=== PATIENT | female | born 1990 | race Caucasian/White ===

== ENCOUNTER → 2021-05-12 14:36 | Outpatient (CLI) | payer OTHER, SELFPAY ==
--- NOTE | ~2021-05-12 | CT_ITS ---
EXAMINATION: CT abdomen w con DATE: 05/12/2021 15:07 INDICATION: Left upper quadrant pain TECHNIQUE: Computed tomography (CT) of the abdomen was performed with 100 cc Omnipaque 350 intravenou s contrast. The dose-length product was 562.44 mGy-cm. Automated exposure control and iterative recon struction technique were employed. COMPARISON: CT dated 08/22/2028. FINDINGS: Lung bases are unremarkable. Heart size normal. No significant pleural or pericardial effus ion. No significant vascular abnormality. No lymphadenopathy. The liver, spleen, pancreas, adrenal glands and kidneys are unremarkable. There are accessory splenul es. Gallbladder is present. Nonobstructive bowel gas pattern. No free air or free fluid. No acute oss eous abnormality. IMPRESSION: 1. No acute abdominal abnormality. Reviewed, dictated and finalized at location A.
== END ==
PROVIDERS: PCP Family Medicine; Visit Provider Family Medicine
DX: R10.9 Unspecified abdominal pain (principal)
CPT/HCPCS: 74160; Q9967

== ENCOUNTER 2024-01-26 09:18 | Outpatient (CLI) | payer OTHER, SELFPAY ==
[2024-01-26 10:08] LABS: Hematocrit 37.7 % (37.0-47.0); Hemoglobin 12.1 g/dL (12.0-15.0); Mean Corpuscular HGB Conc 32.1 g/dl (32-36); Mean Corpuscular Hemoglobin 28.1 pg (26-34); Mean Corpuscular Volume 87.5 fl (80-100); Mean Platelet Volume 10.7 fl (7.4-10.4); Platelet Count Result 318 k/mm3 (150-375); Red Blood Count 4.31 M/mm3 (4.2-5.4); Red Cell Distribution Width 12.3 % (11.5-14.5); White Blood Count 10.3 K/mm3 (4.5-10.0)
[2024-01-26 16:23] LABS: Rapid Plasma Reagin Non-Reactive (NonReactive)
== END 2024-01-26 09:19 | disposition home or self-care (01) ==
LOC: ANHLAB 09:20
PROVIDERS: PCP Family Medicine; Visit Provider Obstetrics & Gynecology
DX: Z01.818 Encounter for other preprocedural examination (principal); O82 Encounter for cesarean delivery without indication; Z3A.00 Weeks of gestation of pregnancy not specified
CPT/HCPCS: 36415; 85027; 86592; 86850; 86900; 86901

== ENCOUNTER 2024-01-27 05:44 | Inpatient (IN) | payer OTHER, SELFPAY ==
[2024-01-27] VITALS (45 sets, daily range): BP systolic 116–164; BP diastolic 62–127; PULSE 54–117; RESP 16–18; TEMP 36.1–36.8; O2SAT 96–100; BMI 38.1
[2024-01-27] MEDS: ACETAMINOPHEN 500 MG TABLET 1000 MG PO (06:24)
--- NOTE | 2024-01-27 06:40 | PM.IMHP ---
H&P: HPI History of Present Illness Date/Time: 01/27/24 06:40 Chief Complaint: Helen bauer Narrative: 33 y/o at 39 2/7 weeks with prior . She was scheduled for repeat this morning. She had a gush of clear fluid and RomPlus is positive here. GBS neg. Review of Systems Review of Systems: All systems reviewed & are unremarkable except as noted in HPI and below PMFSH Surgical History Surgical History (Updated 01/27/24 @ 06:42 by Gomez Harris MD) History of delivery History of knee surgery Family History Family History Other Patient denies significant medical history Social History Social History Substance use: never Spiritual care concerns: No Meds Home Medications and Allergies Home Medications Medication Instructions Recorded Confirmed Type prenat.vits,martha,dry-wkvl-mlybg 1 tablet PO DAILY 05/08/21 10/27/21 History cholecalciferol (vitamin D3) 25 25 mcg PO DAILY 01/15/24 01/15/24 History mcg (1,000 unit) tablet Allergies Allergy/AdvReac Type Severity Reaction Status Date / Time No Known Allergies Allergy Verified 10/27/21 13:39 Exam Const: Orientation/consciousness: patient oriented x3 Other: Well-developed, well-nourished female in no acute distress. Neck: Thyroid: thyroid normal Lymphatic: no lymphadenopathy noted (in neck, axilla or inguinal nodes) Resp: Effort & Inspection: normal respiratory effort Auscultation: clear to auscultation bilaterally Cardio: Rate: regular rate Rhythm: regular rhythm Heart sounds: S1 normal heart sound present and S2 normal heart sound present GI: Other: ABD: Soft, nontender, nondistended, gravid. NST reactive. TOCO: irregular contractions. No guarding or rebound tenderness. No hepatosplenomegaly. : General: Yes no CVA tenderness Other: Cervix closed, thick. Back/Spine/Pelvis: Back: no CVA tenderness Skin: General skin exam: normal color and no rashes or lesions noted Neuro: General: patient oriented x3 Extrem: Other: Extremities: nontender with no edema Psych: Mental Status: mental status grossly normal Affect: normal affect Assessment and Plan Assessment and plan (1) Term : Code(s): Z34.90 - Encounter for supervision of normal , unspecified, unspecified trimester Status: Acute Assessment and Plan: A: IUP at 39 2/7 weeks with SROM, prior Desires repeat. P: Plan repeat . She understands risks of surgery to include risks of anesthesia, risks of pain, infection, bleeding, blood products, thromboembolic phenomena and damage to adjacent structures such as bowel, bladder, ureters, blood vessels and nerves. She understands all these risks and elects to proceed with surgery. (2) SROM (spontaneous rupture of membranes): Status: Acute (3) History of delivery: Code(s): Z98.891 - History of uterine scar from previous surgery Status: Acute
--- NOTE | 2024-01-27 06:43 | WPDHPUPDATE1 ---
History and Physical Update Update Date/Time: 01/27/24 06:43 History and Physical has been reviewed, including an updated exam of the patient. There are NO changes in the patient's condition. Risks, benefits, and alternatives have been discussed and questions answered. Patient agrees to proceed with procedure.
[2024-01-27] MEDS: LACTATED RINGERS 1,000 ML 125 ML IV CONT (06:49)
[2024-01-27] MEDS: ONDANSETRON INJ 4 MG/2 ML VIAL IV PUSH (06:53)
[2024-01-27] MEDS: FAMOTIDINE 20 MG/2 ML VIAL IV PUSH (06:54)
[2024-01-27] MEDS: AZITHROMYCIN 500 MG/NS 250 ML 500 MG/250 ML BAG 250 MG IVPB (06:55)
--- NOTE | 2024-01-27 07:00 | P.PNAN_ITS ---
Anes - Initial Pre Proc Eval Procedure: Operation Date: 01/27/24 11:00 Proposed Procedures p Repeat Section - Gomez Harris MD Date/Time: 01/27/24 07:00 Surgeon: Gomez Harris MD Pre Op Diagnosis: IOl Patient Data Age: 33 Gender: F Height: 1.7 m Weight: 110.5 kg Allergies Allergy/AdvReac Type Severity Reaction Status Date / Time No Known Allergies Allergy Verified 10/27/21 13:39 Home Medications Medication Instructions Recorded Confirmed Type prenat.vits,martha,[id number] 1 tablet PO DAILY 05/08/21 10/27/21 History cholecalciferol (vitamin D3) 25 25 mcg PO DAILY 01/15/24 01/15/24 History mcg (1,000 unit) tablet Patient hx anesthesia problems: none Family hx anesthesia problems: none Results Review: All pre-operative results and documents have been reviewed as part of the pre- operative evaluation. [facility] Surgical History Surgical History History of delivery History of knee surgery Family History Family History Other Patient denies significant medical history Social History Social History Substance use: never Spiritual care concerns: No Anes - Eval Final PreProcedure Day of Procedure 01/27/24 07:00 Patient weight: obese Heart: regular rate and rhythm Lungs: clear to auscultation Airway: Mallampati scale class 1 Neurological: alert and oriented Last oral intake: >/= 8 hours ASA classification: II Emergent: no Anesthetic plan: proceed Anesthesia type and monitoring: regional spinal and standard monitoring Results Review: All pre-operative results and documents have been reviewed as part of the pre- operative evaluation. Informed Consent: The patient's anesthetic plan and its attendant risks and benefits were discussed with the patient/family/POA. Questions were solicited and answers provided to the satisfaction of the patient/family/POA.
--- NOTE | 2024-01-27 07:12 | LDADM ---
This patient, Tianna Romero, was admitted to Labor/Delivery/Recovery 120 on 01/27/24 at 05:44. Plans for labor, pain management and were discussed with patient. Patient/family oriented to hospital policies and general routines including ID bracelet, bed and alarms, visiting hours, pain management, procedures, bathroom and other care routines, personal items, smoking policy, room service/diet and guest tray routines, security routines, and visiting hours. Patient/Family are encouraged to report perceived risks to care and to ask questions if they do not understand what they are told or what they should do. See OBIX for further documentation.
[2024-01-27] MEDS: ceFAZolin 2 GM/D5W 50 ML 2 GM/50 ML BAG IVPB (07:34)
[2024-01-27 08:14] LABS: HIV 1/2 Ab P24 Ag Result Negative (Negative)
[2024-01-27 08:21] LABS: Alanine Aminotransferase 16 U/L (6-35); Albumin Level 3.4 g/dL (3.5-5.1); Alkaline Phosphatase 112 U/L (38-126); Anion Gap 6 mmol/L (4-12); Aspartate Amino Transferase 24 U/L (14-36); Bilirubin,Total 0.3 mg/dL (0.2-1.3); Blood Urea Nitrogen 10 mg/dL (7-17); Carbon Dioxide 21 mmol/L (22-30); Chloride 108 mmol/L (98-107); Estimated CRCL calculation 168 ml/min; Estimated Glomerular Filt Rate > 60; Glucose 94 mg/dL (65-110); Potassium 3.9 mmol/L (3.4-5.0); Sodium 135 mmol/L (137-145); Uric Acid 4.7 mg/dL (2.5-7.5)
--- NOTE | 2024-01-27 08:42 | W.PM.OBCSD ---
OB - Delivery Note Procedure Delivery date: 01/27/24 Pre-op diagnosis: Breech Presentation and Previous Delivery (IUP at 39 2/7 weeks, prior , SROM, breech presentation) Post-op Diagnosis: Same Induction method: None Delivery monitor: External FHT and External Uterine Procedure Performed: Repeat Surgeon: Gomez Harris MD Anesthesia type: Spinal Description of Procedure/Findings: Findings: Normal-appearing uterus, tubes and ovaries. Techniques: The patient was taken to the operating room where she was prepared and draped in the usual sterile fashion in dorsal supine position with a leftward tilt. She received cefazolin preoperatively. Spinal anesthesia was found to be adequate. A Pfannenstiel skin incision was made along the previous scar line and was carried through to the underlying layer of the fascia. The fascia was incised in the midline and the incision was extended laterally. The fascia was dissected free of the underlying rectus muscles. The rectus muscles were in the midline. The peritoneum was identified, tented up and entered sharply. The peritoneal incision was extended superiorly and inferiorly with good visualization of the bladder. The bladder blade was placed. The vesicouterine peritoneum was identified, tented up and entered sharply. The incision was extended laterally and the bladder flap was developed. The bladder blade was replaced. The uterus was then incised sharply in a transverse fashion along the lower uterine segment. The incision was extended laterally. The 's breech was delivered to the level of the scapulae. The arms were swept across the chest and delivered. The head was gently flexed and easily delivered. A loose nuchal cord was reduced. The nose and mouth were bulb suctioned. After a delay, the cord was clamped and cut. The was handed off the field. Cord blood was collected. The placenta was removed manually and was passed off the field. The uterus was exteriorized and cleared of all clots and debris. The uterine incision was reapproximated using 0 Monocryl in a running, locked fashion. A second, imbricating layer was run. Excellent hemostasis resulted as did excellent reapproximation of the normal anatomy. The uterus was returned the abdomen. The pelvis was irrigated copiously with warmed normal saline. Rigorous hemostasis was assured. The fascial layer was reapproximated using 0 Vicryl in a running fashion. The skin was closed with a running, subcuticular stitch of 4 0 Vicryl. Dermaflex was applied externally. Sponge, lap, needle and instrument counts were correct. The patient was taken to the recovery room in stable condition. The went to the nursery in stable condition. I was present and scrubbed the entire procedure. Specimen: Yes (cord blood) Estimated Blood Loss: 90 Drains: Yes (crisostomo) Packing: No Pathology: Yes (cord blood) Complications: None Condition: Stable Disposition: PACU Baby Date of : 01/27/24 Time of : 08:07 Weeks of gestation at delivery: 39 gender: Female Weight (pounds): 6 presentation: rhina breech Placenta delivery description: Manual Removal and Normal Configuration Cord Vessel Description: 3 Vessels, Nuchal Cord and Delayed Cord Clamping score one minute: 9 score five minutes: 9
--- NOTE | 2024-01-27 08:45 | SUR.PHASEI ---
900 ml remains of 1000 ml LR with 40 units Pitocin
--- NOTE | 2024-01-27 08:50 | PM.OBDSVD ---
DS: Admitting Diagnosis Discharge Date 01/28/24 Admitting Diagnosis IUP at 39 2/7 weeks SROM Breech presentation Prior , desires repeat DS: Discharge Diagnosis Discharge Diagnosis (1) delivery delivered: Code(s): O82 - Encounter for delivery without indication Status: Acute OB - DS: Summary OB Procedures : None OB Procedures Intrapartum: OB Procedures: : None Peripartum Data Procedures: Procedures Operation Date: 01/27/24 07:30 Actual Procedure Side Surgeon p Repeat Section Not Applicable Gomez Harris MD Time Spent with Patient Time attestation: Total time spent providing and/or coordinating discharge services: DS: Data Data Completed and Pending Labs on day of discharge: Labs from last 24 hours 01/27/24 06:42 Sodium 135 L Potassium 3.9 Chloride 108 H Carbon Dioxide 21 L Anion Gap 6 BUN 10 Creatinine 0.50 L Estim Creat Clear Calc 168 Estimated GFR > 60 Glucose 94 Uric Acid 4.7 Calcium 9.0 Total Bilirubin 0.3 AST 24 ALT 16 Alkaline Phosphatase 112 Total Protein 7.0 Albumin 3.4 L HIV 1&2 Ab/P24 Ag 4thGn Negative Discharge Plan Discharge Attending physician on discharge: Gomez Harris Discharging Clinician: Gomez Harris Patient Disposition: Home, Self-Care Activity: may shower, may drive after 2 weeks and pelvic rest Diet: regular Wound Care Instructions: incision open to air Discharge Instructions: Call or return if temperature above 100.4? F, increased abdominal pain, increased vaginal bleeding or any new problems. Stand Alone Forms: General Discharge Information Follow-up/Referrals: Gomez Harris MD [Physician] - 4 Weeks Discharge Medications: New ibuprofen 600 mg tablet 600 mg PO Q6H PRN (Reason: cramps) Qty: 30 0RF ferrous sulfate 325 mg (65 mg iron) tablet 325 mg PO DAILY Qty: 30 0RF hydrocodone-acetaminophen 5-325 mg tablet 1 - 2 tablet PO Q6H PRN (Reason: pain) Qty: 30 0RF Continued prenat.vits,martha,fos-pbrb-tuwqv Tablet 1 tablet PO DAILY cholecalciferol (vitamin D3) 25 mcg (1,000 unit) Tablet 25 mcg PO DAILY docusate sodium [Colace] 100 mg Capsule 100 mg PO DAILY Date of admission: 01/27/24 05:44 Primary Care Provider: Vonnie Marion Admitting Provider: Gomez Harris Attending physician on admission: Gomez Harris Condition: Stable
--- NOTE | 2024-01-27 09:18 | SUR.PHASEI ---
Severe range BP of 164/127 was obtained with pt's arm bent while . Had pt straighten right arm and repeat BP 126/74.
[2024-01-27] MEDS: diphenhydrAMINE HCl INJ 50 MG/ML VIAL 25 MG IV PUSH (10:03)
[2024-01-27] MEDS: fentaNYL CITRATE INJ (*CRX) 100 MCG/2 ML VIAL 25 MCG IV PUSH (10:34)
--- NOTE | 2024-01-27 11:18 | PC.NURSE ---
Patient transferred to post room #277 per stretcher from labor and delivery. Support person present. Oriented to unit, room, information board, rooming in, admission packet and security measures. Patient verbalizes understanding.
[2024-01-27] MEDS: ACETAMINOPHEN 325 MG TABLET 650 MG PO ×2 (13:23→19:54)
[2024-01-27] MEDS: KETOROLAC 15 MG/ML VIAL (*BKC) IV PUSH ×2 (13:23→19:55)
[2024-01-27] MEDS: SIMETHICONE 80 MG TAB.CHEW PO ×2 (13:23→18:04)
--- NOTE | 2024-01-27 14:49 | PC.NURSE ---
Patient did receive her 500ml bag with pitocin after delivery. The medication was discontinued before it was able to be scanned.
[2024-01-27] MEDS: DEXTROSE 5%/0.45% SOD CHL 1,000 ML 125 ML IV CONT (18:03)
[2024-01-27] MEDS: DOCUSATE SODIUM 100 MG CAPSULE PO (18:04)
[2024-01-27] MEDS: LIDOCAINE 5% PATCH 1 PATCH TRANSDERM (21:30)
[2024-01-28] MEDS: ACETAMINOPHEN 325 MG TABLET 650 MG PO ×4 (02:49→22:11)
[2024-01-28] MEDS: KETOROLAC 15 MG/ML VIAL (*BKC) IV PUSH ×2 (02:49→08:39)
[2024-01-28 05:12] VITALS: BP 112/71; PULSE 73; RESP 18; TEMP 36.5; O2SAT 97
[2024-01-28 05:39] LABS: Basophils Percent Auto 0.2 % (0.2-1.2); Eosinophils Absolute Auto 0.1 K/mm3 (0-0.3); Eosinophils Percent Auto 0.8 % (0-4.4); Hematocrit 30.6 % (37.0-47.0); Hemoglobin 9.6 g/dL (12.0-15.0); Immature Granulocyte Absolute 0.03 K/mm3 (0.00-0.031); Immature Granulocyte Percent A 0.4 % (0-0.5); Lymphocytes Absolute Auto 1.58 K/mm3 (0.9-3.2); Lymphocytes Percent Auto 19.1 % (18.3-44.2); Mean Corpuscular HGB Conc 31.4 g/dl (32-36); Mean Corpuscular Hemoglobin 27.7 pg (26-34); Mean Corpuscular Volume 88.2 fl (80-100); Mean Platelet Volume 10.7 fl (7.4-10.4); Monocytes Absolute Auto 0.5 K/mm3 (0.1-0.6); Neutrophils Absolute Auto 6.1 K/mm3 (1.3-6.7); Neutrophils Percent Auto 73.5 % (45.5-73.1); Platelet Count Result 246 k/mm3 (150-375); Red Blood Count 3.47 M/mm3 (4.2-5.4); Red Cell Distribution Width 12.6 % (11.5-14.5); White Blood Count 8.3 K/mm3 (4.5-10.0)
--- NOTE | 2024-01-28 07:50 | WPDANLDPN2 ---
Anes-Prog Note L&D Date/Time: 01/28/24 07:50 Comfortable throughout: section Neuraxial method: spinal Epidural/Spinal procedure site: clean & non-tender Neuro status: Neuro function grossly intact. Cardiovascular status: normal Respiratory status: normal Airway patency: baseline Mental status: baseline Post-Op hydration status: normal Vital Signs: Last Vital Signs Temp 36.5 C 01/28/24 05:12 Pulse 73 01/28/24 05:12 Resp 18 01/28/24 05:12 BP 112/71 01/28/24 05:12 Pulse Ox 97 01/28/24 05:12 O2 Del Method Room Air 01/27/24 10:45 Pain score (VAS): 2/10 I/O: Intake & Output 01/27/24 01/27/24 01/28/24 15:59 23:59 07:59 Intake Total 240 1022.9 550 Output Total 220 1650 1550 Balance 20 -627.1 -1000 Post-procedural complaints: pruritis mild, no treatment Patient feedback: Patient satisfied with anesthetic care.
--- NOTE | 2024-01-28 07:51 | WPDANLDNPN2 ---
Anes-Prog Note L&D-Neuraxial Date/Time: 01/28/24 07:51 Neuraxial medications: intrathecal PF morphine Opiod-related complaints: pruritis mild, no treatment Patient feedback: Patient satisfied with post-operative pain management.
[2024-01-28 08:15] VITALS: BP 128/86; PULSE 81; RESP 16; TEMP 36.8; O2SAT 98
[2024-01-28] MEDS: DOCUSATE SODIUM 100 MG CAPSULE PO ×2 (08:38→15:58)
[2024-01-28] MEDS: POLYSACCHARIDE IRON COMPLEX 150 MG CAPSULE PO ×2 (08:38→15:59)
[2024-01-28] MEDS: SIMETHICONE 80 MG TAB.CHEW PO ×2 (08:39→15:58)
[2024-01-28] MEDS: MULTIVIT/MIN/PREN/FOL AC/IRON TABLET 1 TAB PO (08:39)
--- NOTE | 2024-01-28 08:50 | PM.OBPNVD ---
OB - PN: Subj Subjective Date/time seen: 01/28/24 08:50 Narrative: Pain OK. Tolerating diet. Would like to go home. OB - PN: Obj Data Labs 01/28/24 05:19 01/27/24 06:42 Labs: Laboratory Results - last 24 hr 01/28/24 05:19 WBC 8.3 RBC 3.47 L Hgb 9.6 L Hct 30.6 L MCV 88.2 MCH 27.7 MCHC 31.4 L RDW 12.6 Plt Count 246 MPV 10.7 H Immature Gran % (Auto) 0.4 Neut % (Auto) 73.5 H Lymph % (Auto) 19.1 [place] % (Auto) 6.0 Eos % (Auto) 0.8 Baso % (Auto) 0.2 Lymph # (Auto) 1.58 [place] # (Auto) 0.5 Eos # (Auto) 0.1 Baso # (Auto) 0.0 Abs Immat Gran (auto) 0.03 Absolute Neuts (auto) 6.1 Absolute Nucleated RBC 0.000 Nucleated RBC % 0.0 OB - PN A/P Plan Comments: A: POD#2, doing well. P: Home to f/u 4 weeks. Exam Narrative: AVSS ABD soft, nontender, fundus firm. Incision c/d/i. EXT nontender
[2024-01-28] MEDS: IBUPROFEN 600 MG TABLET PO ×2 (15:59→22:12)
--- NOTE | 2024-01-28 18:59 | PC.NURSE ---
Gum at bedside
[2024-01-28 20:00] VITALS: BP 138/92; PULSE 85; RESP 18; TEMP 36.8; O2SAT 100
[2024-01-28] MEDS: LIDOCAINE 5% PATCH 1 PATCH TRANSDERM (22:12)
[2024-01-29] MEDS: ACETAMINOPHEN 325 MG TABLET 650 MG PO (05:38)
[2024-01-29] MEDS: IBUPROFEN 600 MG TABLET PO (05:38)
[2024-01-29 07:45] VITALS: BP 134/85; PULSE 66; RESP 16; TEMP 36.9; O2SAT 99
--- NOTE | 2024-01-29 07:45 | PC.NURSE ---
Breast pump provided due to maternal request. Instructions given on cleaning, care, usage, that there should be no pain, pumping schedule for milk production, collection, and storage of human milk. Patient was assessed for correct placement, flange size, to pump for comfort and nipple stretching/stimulation for adequate milk production every 3 hours (8 times in 24 hours) 1-2 times at night.
[2024-01-29] MEDS: SIMETHICONE 80 MG TAB.CHEW PO (08:26)
[2024-01-29] MEDS: MULTIVIT/MIN/PREN/FOL AC/IRON TABLET 1 TAB PO (08:26)
[2024-01-29] MEDS: POLYSACCHARIDE IRON COMPLEX 150 MG CAPSULE PO (08:26)
[2024-01-29] MEDS: DOCUSATE SODIUM 100 MG CAPSULE PO (08:26)
--- NOTE | 2024-01-29 10:12 | PM.OBPNVD ---
OB - PN: Subj Subjective Date/time seen: 01/29/24 10:12 Narrative: Pain OK. Tolerating diet. Would like to go home. OB - PN: Obj Data Labs 01/28/24 05:19 01/27/24 06:42 OB - PN A/P Plan day: 2 Comments: A: POD#2, doing well. P: Home to f/u 4 weeks. Exam Narrative: AVSS ABD soft, nontender, fundus firm. Incision c/d/i. EXT nontender
[2024-01-31 10:16] VITALS: BP 144/89; PULSE 88; RESP 18; TEMP 36.9; O2SAT 100
== END 2024-01-29 11:37 | disposition home or self-care (01) | DRG 788 ==
LOC: ANHLDR 05:50 → ANHOB2 11:47
PROVIDERS: Admitting Provider Obstetrics & Gynecology; PCP Family Medicine; Visit Provider Obstetrics & Gynecology
PROC: 10D00Z1 Extraction of Products of Conception, Low, Open Approach (ICD-10-PCS; CPT 59514; principal; 2024-01-27 11:00)
DX: O34.211 Maternal care for low transverse scar from previous cesarean delivery (principal); Z37.0 Single live birth; Z3A.39 39 weeks gestation of pregnancy; O69.81X0 Labor and delivery complicated by cord around neck, without compression, not applicable or unspecified; O32.1XX0 Maternal care for breech presentation, not applicable or unspecified
CPT/HCPCS: 36415; 80053; 84112; 84550; 85025; 85027; 86592; 86703; 86850; 86900; 86901; A9270; G0432; J0456; J0690; J1200; J1885; J2274; J2371; J2405; J2590; J3010; J7120

== ENCOUNTER 2024-03-01 07:52 | Outpatient (CLI) | payer OTHER, SELFPAY ==
--- NOTE | ~2024-03-01 | US_ITS ---
COMPLETE ABDOMINAL ULTRASOUND Ordering provider: Gomez Harris MD History: . Pain, . Comparison: None. FINDINGS: LIVER: Normal size and echotexture. No focal hepatic lesions or perihepatic fluid collections are sukhjinder ntified. Portal vein flow is normal. GALLBLADDER: Multiple gallstones. No evidence for sludge, gallbladder wall thickening or pericholecys tic fluid collections. The wall thickness is 0.3 cm.. A negative sonographic Garcia's sign was noted. BILIARY DUCTS: No evidence for intra or extrahepatic biliary dilation. Common bile duct measures 4 mm in diameter which is within normal limits. PANCREAS: Normal echotexture and size. KIDNEYS: Right measures 11.7 cm in length in length. There is no evidence for hydronephrosis, solid r enal mass, renal calculi or perinephric fluid collections. No renal cysts. FREE FLUID: None. IMPRESSION: 1. Cholelithiasis. Otherwise unremarkable right upper quadrant Ultrasound of the abdomen. Reviewed, dictated and finalized at location A. IMPRESSION: 1. Cholelithiasis. Otherwise unremarkable right upper quadrant Ultrasound of e abdomen.
== END 2024-03-01 07:53 ==
PROVIDERS: PCP Family Medicine; Visit Provider Obstetrics & Gynecology
DX: R10.11 Right upper quadrant pain (principal); K80.20 Calculus of gallbladder without cholecystitis without obstruction
CPT/HCPCS: 76705

== ENCOUNTER 2024-03-15 12:38 | Outpatient (CLI) | payer OTHER, SELFPAY ==
[2024-03-15 13:33] LABS: Amylase 72 U/L (30-110); Lipase 176 U/L (23-300)
== END 2024-03-15 12:39 | disposition home or self-care (01) ==
LOC: ANHSURGERY 12:41
PROVIDERS: PCP Family Medicine; Visit Provider Surgery
DX: K80.20 Calculus of gallbladder without cholecystitis without obstruction (principal); Z01.818 Encounter for other preprocedural examination
CPT/HCPCS: 36415; 82150; 83690

== ENCOUNTER 2024-03-20 01:47 | Day surgery (SDC) | payer OTHER, SELFPAY ==
[2024-03-15 09:41] VITALS: BMI 34.7
--- NOTE | 2024-03-15 09:46 | PC.NURSE ---
Report to the Outpatient Waiting Room, entrance under the green pavilion located off [facility], at time _0600_ on date _[id number]_. Planned Procedure Time: _0730_. Time changes happen often and if your time is changed the preop area will call you the afternoon before. - You and your visitor will be asked to self-screen and do not enter if you have any COVID symptoms. - A mask is optional within the hospital at this time. Patients may have clear liquids (water, carbonated beverages, clear teas, apple juice) until 3 hours prior to surgery with a maximum of 20 ounces. - No food from midnight until time of surgery Take the following medications with a SIP of water the morning of surgery: None DO NOT STOP ANY OF YOUR OTHER PRESCRIPTION MEDICATIONS PRIOR TO SURGERY ?EXCEPT THE FOLLOWING Medications to discontinue per physician Vitamins Date to take last ioqs___[id number] Please no make-up, nail bruneian, hairspray, perfume, deodorant, or body powder the day of surgery. No jewelry (including any body piercings) or valuables the day of surgery, leave them at home. Please take a shower or bath the night before, or the morning of, surgery with an antibacterial soap. Wear comfortable, loose fitting clothing. - Jewelry must be removed prior to entering the operating room. Rings and piercings that are not removed may be cut off. - The hospital will not accept responsibility for valuables. - Please leave all valuables, including medications, at home the day of surgery. If you are going home after surgery, a licensed owner operator tanker truck driver must drive you home. - NO public transportation without another adult if you receive anesthesia. - We recommend that an adult stay with you for 24 hours following discharge. - We also recommend that you do not drive, make important decision, drink alcoholic beverages, or take any drugs that were not prescribed by your health care provider for at least 24 hours after your discharge time. Follow any additional instructions given to you from your surgeon. If you or anyone in your household have experienced Covid symptoms in the past week, please notify your surgeon or the nurse liaison at the phone number below for possible testing. Telephone instructions given to _Alyssa__and asked if any additional questions and then verbalized understanding. Patient advised to call surgeon office or pre surgery nurse liaison [phone] if any additional questions.
[2024-03-20] VITALS (13 sets, daily range): BP systolic 119–146; BP diastolic 77–105; PULSE 67–84; RESP 12–16; TEMP 36.2–36.6; O2SAT 95–100
[2024-03-20] MEDS: ACETAMINOPHEN 500 MG TABLET 1000 MG PO (06:45)
[2024-03-20] MEDS: KETOROLAC 15 MG/ML VIAL (*BKC) IV PUSH (06:45)
[2024-03-20] MEDS: LACTATED RINGERS 1,000 ML 30 ML IV CONT ×3 (06:45→11:13)
--- NOTE | 2024-03-20 07:22 | P.PNAN_ITS ---
Anes - Initial Pre Proc Eval Procedure: Operation Date: 03/20/24 07:30 Proposed Procedures p Laparoscopic Cholecystectomy, Possible Open - Antione Rae MD Date/Time: 03/20/24 07:22 Surgeon: Antione Rae MD Pre Op Diagnosis: Symptomatic Cholelithiasis Patient Data Age: 33 Gender: F Height: 1.7 m Weight: 100.4 kg Allergies Allergy/AdvReac Type Severity Reaction Status Date / Time No Known Allergies Allergy Verified 03/15/24 09:39 Home Medications Medication Instructions Recorded Confirmed Type prenat.vits,martha,giw-enzk-mbrpu 1 tablet PO DAILY 05/08/21 03/15/24 History cholecalciferol (vitamin D3) 25 25 mcg PO DAILY 01/15/24 03/15/24 History mcg (1,000 unit) tablet Patient hx anesthesia problems: none Family hx anesthesia problems: none Results Review: All pre-operative results and documents have been reviewed as part of the pre- operative evaluation. [facility] Surgical History Surgical History History of delivery History of knee surgery Family History Family History Other Patient denies significant medical history Social History Social History Smoking status: Never smoker Second hand tobacco smoke exposure: No Substance use: never Do You Feel Safe in your Home?: Yes Lack of Transportation: No Lack of Food: Never True Current Housing: I Have Housing Concerned About Future Housing: No Difficulty Paying Gas/Electric Bills: No Difficulty Paying for Meds: No Currently Unemployed: No Education: Master's Degree or Higher Difficulty w/ Childcare or Family Care: No Living arrangements: with family Spiritual care concerns: No Anes - Eval Final PreProcedure Day of Procedure 03/20/24 07:22 Patient weight: obese Heart: regular rate and rhythm Lungs: clear to auscultation Airway: Mallampati scale class II Neurological: alert and oriented Last oral intake: >/= 8 hours ASA classification: II Emergent: no Anesthetic plan: proceed Anesthesia type and monitoring: general ETT and standard monitoring Results Review: All pre-operative results and documents have been reviewed as part of the pre- operative evaluation. Informed Consent: The patient's anesthetic plan and its attendant risks and benefits were discussed with the patient/family/POA. Questions were solicited and answers provided to the satisfaction of the patient/family/POA.
--- NOTE | 2024-03-20 07:27 | WPDHPUPDATE1 ---
History and Physical Update Update Date/Time: 03/20/24 07:27 History and Physical has been reviewed, including an updated exam of the patient. There are NO changes in the patient's condition. Risks, benefits, and alternatives have been discussed and questions answered. Patient agrees to proceed with procedure.
[2024-03-20] MEDS: ceFAZolin 2 GM/D5W 50 ML 2 GM/50 ML BAG IVPB (07:33)
[2024-03-20] MEDS: LIDO 1%/EPINEPHRINE 1:100,000 50 ML VIAL 30 ML INFILTRATE (08:00)
[2024-03-20] MEDS: BUPivacaine HCL 0.5% 10 ML AMP 30 ML INFILTRATE (08:00)
[2024-03-20 08:59] LABS: BEDSIDEPREGUCG Negative
--- NOTE | 2024-03-20 09:52 | W.PM.PROC2 ---
Procedure Note - Detailed Date of Procedure 03/20/24 Pre-op Diagnosis Symptomatic Cholelithiasis Post-op Diagnosis Other (Subacute cholecystitis secondary to cholelithiasis) Procedure Performed Laparoscopic cholecystectomy Surgeon Antione Rae MD Hebrew [employer]or Aric Gutierrez [employer] Anesthesia General Indications Patient is a 33-year-old female who is a couple months . She had no problems with the her gallbladder her . She has had problems with right upper quadrant abdominal pain radiating to her back since delivering. Pain is worse with eating. Abdominal ultrasound showed multiple small gallstones within the gallbladder. No gallbladder wall thickening was noted. She presents now for an elective laparoscopic cholecystectomy. Findings Patient had a larger gallstones than was expected given the description of small gallstones on the abdominal ultrasound. Check she had gallstones impacted within the neck of the gallbladder causing a degree of subacute cholecystitis secondary to cholelithiasis. Description of Procedure After informed consent was obtained patient brought to the operating room she was placed supine position and general endotracheal anesthesia was administered. The abdomen was then prepped and draped usual sterile fashion. A time-out was then performed correctly identifying the patient as well as procedure to be performed. She was given perioperative IV antibiotics. I entered the abdomen left upper quadrant utilizing a 5mm Optiview port. Once inside the abdomen insufflated to adequate pneumoperitoneum of 15mmHg of CO2. There was a single omental adhesion to a small midline incisional hernia from her prior . This was below the area umbilical port was not taken down initially. I then placed a periumbilical trocar port and then switched to laparoscopic to the periumbilical trocar port site. Looking to the upper portions of the abdomen and then placed a 10mm epigastric trocar port and 2 right lateral subcostal 5mm trocar ports all under visualization. The gallbladder was distended. It was mildly acutely inflamed with what appeared to be gallstones impacted within the neck of the gallbladder. There was acute inflammation on top of what was likely some chronic inflammation. I was able to hold the distended gallbladder at the dome with a laparoscopic grasper and elevate the gallbladder over the right half 3rd his right shoulder. I was able to then reduce the gallstone within the neck of the gallbladder and then grasped the gallbladder at the infundibulum with a laparoscopic grasper. Lateral traction on the infundibular gallbladder I then strip down the visceral peritoneum of the infundibulum gallbladder identified the cystic duct. The cystic duct was then dissected out circumferentially. Cystic artery was identified and dissected out circumferentially as well. Posterior wall the gallbladder at the infundibulum dissected free the liver into the critical view was obtained. At this point I placed 2 clips proximally cystic duct and 2 clips distally high on infundibular gallbladder. Cystic duct was then divided with Endo Macey. The cystic artery identified and dissected circumferentially as well and then clipped and divided in similar fashion. The gallbladder was then resected off the liver utilized electrocautery. Due to the chronic and acute inflammation of gallbladder there was a rather poor dissection plane in the posterior wall. Some bleeding bed was encountered this was controlled easily with electrocautery. A 1 point the gallbladder wall was entered and white clear bile drained from the gallbladder. No gallstones fell out of the gallbladder. Once I had the gallbladder completely dissected off the liver I then placed into an Endo-Catch bag and brought out through the epigastric trocar port site. Gallbladder had large gallstones within it. I then sent the gallbladder to pathology for examination with the gallstones.
[2024-03-20] MEDS: hydrALAZINE HCL 20 MG/ML VIAL 5 MG IV PUSH ×2 (10:50→11:20)
[2024-03-20] MEDS: oxyCODONE HCL (*CRX) 5 MG TAB IR PO (11:55)
--- NOTE | 2024-03-20 11:55 | SUR.PHASEII ---
MD Bustamante notified - pt wants to double check to make sure she can breast feed on oxycodone. Pt ok to continue on oxycodone per MD Bustamante.
== END 2024-03-20 12:34 | disposition home or self-care (01) ==
PROVIDERS: PCP Family Medicine; Visit Provider Surgery
PROC: 0FT44ZZ Resection of Gallbladder, Percutaneous Endoscopic Approach (ICD-10-PCS; CPT 47562; principal; 2024-03-20 07:30)
DX: K80.10 Calculus of gallbladder with chronic cholecystitis without obstruction (principal); K66.0 Peritoneal adhesions (postprocedural) (postinfection); E66.9 Obesity, unspecified; Z68.35 Body mass index [BMI] 35.0-35.9, adult; Z98.890 Other specified postprocedural states
CPT/HCPCS: 47562; 36415; 82150; 83690; 88304; A9270; J0330; J0360; J0690; J1100; J1170; J1885; J2250; J2405; J2704; J3010; J7120

== ENCOUNTER 2024-10-11 08:07 | Emergency (ER) | payer OTHER, SELFPAY ==
[2024-10-11 08:20] VITALS: BP 123/88; PULSE 97; RESP 16; TEMP 37.4; O2SAT 96
--- NOTE | 2024-10-11 08:29 | ED.URI ---
HPI - URI/Sore Throat General Chief Complaint: Upper Respiratory Infection Stated Complaint: FEVER Time Seen by Provider: 10/11/24 08:29 Source: patient Mode of arrival: ambulatory Limitations: no limitations History of Present Illness HPI Narrative: 34-year-old female presents with complaint of sore throat, congestion, headache, low-grade fever starting yesterday. Patient states she was at dentist 3 days ago and was told that throat looked red. Patient states at that time her throat was not sore. Denies nausea vomiting diarrhea. All systems reviewed and negative except as noted above. Related Data Home Medications ?Medication ?Instructions ?Recorded ?Confirmed ?Last Taken ?Type norethindrone (contraceptive) 0.35 mg PO 04/21/24 04/21/24 Unknown History mg tablet Allergies Allergy/AdvReac Type Severity Reaction Status Date / Time No Known Allergies Allergy Verified 10/11/24 08:29 Review of Systems Review of Systems: CONSTITUTIONAL: Reports fatigue, fever. Denies chills, or sweats. EYES: Denies visual changes, redness, or discharge. ENT: Reports rhinorrhea, congestion, sore throat. Denies otalgia. CARDIOVASCULAR: Denies chest pain, palpitations, or edema. RESPIRATORY: Denies cough or dyspnea. GASTROINTESTINAL: Denies abdominal pain, nausea, vomiting, or diarrhea. GENITOURINARY: Denies dysuria or hematuria. SKIN: Denies rash or itching. MUSCULOSKELETAL: Denies back pain, joint pain, or myalgia. NEUROLOGIC: Denies headache, numbness, or weakness. PSYCHIATRIC: Denies anxiety or depression. All other systems reviewed are negative, except as documented in HPI. [facility] Surgical History Surgical History History of delivery History of knee surgery Hx laparoscopic cholecystectomy 03/20/24 Family History Family History Other Patient denies significant medical history Social History Social History Smoking status: Never smoker Second hand tobacco smoke exposure: No Substance use: never Do You Feel Safe in your Home?: Yes Lack of Transportation: No Lack of Food: Never True Current Housing: I Have Housing Concerned About Future Housing: No Difficulty Paying Gas/Electric Bills: No Difficulty Paying for Meds: No Currently Unemployed: No Education: Master's Degree or Higher Difficulty w/ Childcare or Family Care: No Living arrangements: with family Spiritual care concerns: No Comments At time of signature, agree with nursing past medical, surgical, social and family history. There is no relevant family history pertinent to the presenting complaint. Exam Narrative: GENERAL: This is a well-nourished, well-developed patient, in no apparent distress. HEAD: normocephalic, atraumatic. EYES: PERRL. Sclera clear/white. Vision is grossly intact. EARS: External ears normal, auditory canals clear and without drainage, TMs normal without perforation. Hearing grossly intact. NOSE: External nose normal with no obvious nasal discharge, nares without redness, no rhinorrhea. THROAT: Mucous membranes moist, erythematous with mild swelling. No exudates. Tonsils 1+ bilaterally. NECK: Neck supple, non-tender without lymphadenopathy, masses or thyromegaly. CARDIOVASCULAR: Regular rate and rhythm without murmurs, gallops, or rubs. RESPIRATORY: Clear to auscultation. Breath sounds equal bilaterally. No wheezes, rales, or rhonchi. SKIN: warm, Dry, intact with no suspicious lesions or rash, good texture and turgor. NEURO: awake, alert, and oriented to person, place and time. There were no obvious focal neurologic abnormalities. EXTREMITIES: No joint tenderness, effusion, or edema noted. Course Course Level of Care: Express Care Visit Vital Signs Vital signs: Vital Signs Temperature 37.4 C 10/11/24 08:20 Pulse Rate 97 10/11/24 08:20 Respiratory Rate 16 10/11/24 08:20 Blood Pressure 123/88 10/11/24 08:20 Pulse Oximetry 96 10/11/24 08:20 Temperature 37.4 C 10/11/24 08:20 Pulse Rate 97 10/11/24 08:20 Respiratory Rate 16 10/11/24 08:20 Blood Pressure 123/88 10/11/24 08:20 Pulse Oximetry 96 10/11/24 08:20 Reviewed MDM - URI/Sore Throat MDM Narrative Medical decision making narrative: Positive rapid strep. Will treat patient with amoxicillin. Patient is well-appearing, nontoxic. Please be advised this is a medical document. It is intended for [id number] communication. It is written in medical language and may contain unfamiliar abbreviations or verbiage. Medical documents are intended to carry relevant information, facts as evident, and the clinical opinion of the practitioner at the time of the encounter. This report may have been done utilizing a voice recognition system. Attempts have been made to correct errors. However, there may be uncorrected grammatical, spelling, and recognition errors present. The file time of this note does not necessarily represent the time of service. Differential Diagnosis Differential diagnosis: Likely upper respiratory infection, sinusitis, viral infection, influenza and pharyngitis Lab Data Labs: Lab Results 10/11/24 10/11/24 Range/Units 08:27 08:29 POC Influenza A Ag Negative (Negative) POC Influenza B Ag Negative (Negative) POC SARS CoV-2 Ag Negative (Negative) POC Grp A Strep Screen Positive (Negative) Discharge Plan Discharge Clinical Impression: Strep throat Patient Disposition: Home, Self-Care Condition: Stable Instructions: Antibiotic Form, Strep Throat (ED) Additional Instructions: Your strep test was positive today. Take antibiotic as prescribed until gone. Change toothbrush after taking antibiotic for 24 hours. Take ibuprofen or Tylenol every 6-8 hours as needed for pain and fever. Drink plenty of water and rest. Follow-up with your primary care physician if symptoms are not improving. Patient Language: American Prescriptions: New amoxicillin 500 mg capsule 500 mg PO Q12H 10 Days Qty: 20 0RF No Action norethindrone (contraceptive) 0.35 mg tablet PO Follow-up/Referrals: Vonnie Marion DO [Primary Care Provider] - Time of Disposition: 08:37
[2024-10-11 08:30] LABS: EDSTREPNEGPOS1 Positive (Negative)
[2024-10-11 08:32] LABS: EDCOVIDSCREEN Negative (Negative); EDINFLUASCREEN Negative (Negative); EDINFLUBSCREEN Negative (Negative)
== END 2024-10-11 08:43 | disposition home or self-care (01) ==
PROVIDERS: Emergency Provider Nurse Practitioner Family; PCP Family Medicine
DX: J02.0 Streptococcal pharyngitis (principal); Z20.822 Contact with and (suspected) exposure to COVID-19
CPT/HCPCS: 87426; 87804; 87880; 99213; G0463